=== PATIENT | female | born 1945 | race Caucasian/White ===

== ENCOUNTER 2022-01-27 02:18 | Emergency (ER) | payer MEDICARE, OTHER ==
[~2022-01-27 02:18] MED LIST: ASPIRIN CHEWABL81 MG PO; BOTOX; ELAVIL25 MG PO; FLEXERIL10 MG PO; HCTZ25 MG PO; MEDROL 4MG DOSEP4 MG PO; MULTIPLE VITAM1 EACH PO; NORCO 5-325 TA1 EACH PO; PROTONIX 40MG T40 MG PO; TOPROL XL 50 MG50 MG PO; VOLTAREN **OUT50 MG PO
[2022-01-27 03:10] LABS: INR 0.94 (0.9-1.2); PTT 26.9 SECONDS (24.4-34.7)
[2022-01-27 03:11] LABS: BASOPHIL 0.5 % (0-2); HCT 36.9 % (37.0-47.0); HGB 11.8 g/dl (12.5-16.0); LYMPHOCYTE 15.7 % (15-48); MCH 30.9 pg (25.0-31.0); MCV 96.6 fL (78.0-100.0); MONOCYTE 9.4 % (0-12); MPV 12.1 fL (6.0-9.5); NEUTROPHIL 72.3 % (41-80); NRBC 0; PLT 169 K/uL (150-400); RBC 3.82 M/uL (4.20-5.40); RDW 14.5 % (11.5-14.0)
[2022-01-27 03:18] LABS: BILIRUBIN - TOTAL 0.2 mg/dL (0.2-1.0); BUN/CREAT RATIO (CALC) 23.4 RATIO; CREATININE 0.94 mg/dL (0.51-0.95); GLOBULIN (CALCULATION) 3.5 g/dL; POTASSIUM 3.6 mmol/L (3.5-5.1); TOTAL PROTEIN 6.5 g/dL (6.4-8.2)
[2022-01-27] MEDS ORDERED: MEDROL 4MG DOSEP4 MG PO (07:51)
[2022-01-27] MEDS ORDERED: VIBRAMYCIN100 MG PO (07:51)
[2022-01-27] MEDS ORDERED: VENTOLIN HFA IN18 GM INH (07:51)
== END 2022-01-27 08:23 | disposition home or self-care (01) ==
LOC: FER 02:18
PROVIDERS: Internal Medicine
DX: J43.9 Emphysema, unspecified (principal); J40 Bronchitis, not specified as acute or chronic; I10 Essential (primary) hypertension; Z88.8 Allergy status to other drugs, medicaments and biological substances; Z79.899 Other long term (current) drug therapy
CPT/HCPCS: 36415; 71045; 71275; 80053; 83880; 84484; 85025; 85610; 85730; 93005; 94640; 94664; J7040; Q9967